=== PATIENT | female | born 2000 | race Caucasian/White ===

== ENCOUNTER 2021-08-26 18:05 | Emergency (ER) | payer SELFPAY ==
[2021-08-26 18:17] VITALS: BP 128/81; PULSE 101; RESP 16; TEMP 36.9; O2SAT 99
--- NOTE | 2021-08-26 18:30 | ED.URI ---
HPI - URI/Sore Throat General Chief Complaint: Upper Respiratory Infection Stated Complaint: Cough Time Seen by Provider: 08/26/21 18:26 Source: patient and RN notes reviewed Mode of arrival: ambulatory Limitations: no limitations History of Present Illness HPI Narrative: 20-year-old female presents with concern for 2-week history of sore throat, cough. She reports sinus congestion and pressure. Reports she is [id number] medications with no relief. She denies sore throat. Denies body aches, chills, fever, sweats. MD elicited complaint: cough and nasal congestion Related Data Allergies Allergy/AdvReac Type Severity Reaction Status Date / Time No Known Allergies Allergy Unverified 07/28/18 14:34 Review of Systems Review of Systems: CONSTITUTIONAL: Denies malaise, chills, sweats, or fever. EYES: Denies visual changes, redness, or discharge. ENT: Reports rhinorrhea, congestion, sinus pain. Otalgia and sore throat. CARDIOVASCULAR: Denies chest pain, palpitations, or edema. RESPIRATORY: Reports cough. Denies dyspnea. GASTROINTESTINAL: Denies abdominal pain, nausea, vomiting, diarrhea SKIN: Denies rash or itching. MUSCULOSKELETAL: Denies myalgia. NEUROLOGIC: Denies headache. All systems reviewed & are unremarkable except as noted in HPI and below PMFSH Comments At time of signature, agree with nursing past medical, surgical, social and family history. There is no relevant family history pertinent to the presenting complaint Exam Narrative: GENERAL: Well-appearing, well-nourished, and in no acute distress. HEAD: Normocephalic EYES: PERRLA, conjunctivae clear ENT: Nares clear, turbinates edematous and erythematous, sinus tenderness. Mucous membranes moist. TM pearly silverman with dull light reflex bilaterally; no tragal tenderness. Oropharynx not erythematous without lesions. Tonsils not enlarged and without exudate, no drooling, no hoarseness, no trismus, uvula midline. NECK: Supple. No lymphadenopathy CHEST: Clear to auscultation, breath sounds equal. No wheezing, rhonchi, rales, or stridor. No respiratory distress, speaks in full sentences. HEART: Regular rate and rhythm. No murmur heard. SKIN: Warm, dry, no rash. NEURO: Alert and oriented x3. PSYCH: Normal mood and affect Course Course Emergency Course: Patient is aware of diagnosis, understands and agrees to treatment plan. Anticipatory guidance given. Patient agrees to follow-up as directed and is aware of reasons to seek care at the emergency department. Portions of this record may have been created with voice recognition software Level of Care: Express Care Visit Vital Signs Vital signs: Vital Signs Temperature 98.5 F 08/26/21 18:17 Pulse Rate 101 H 08/26/21 18:17 Respiratory Rate 16 08/26/21 18:17 Blood Pressure 128/81 08/26/21 18:17 Pulse Oximetry 99 08/26/21 18:17 Temperature 98.5 F 08/26/21 18:17 Pulse Rate 101 H 08/26/21 18:17 Respiratory Rate 16 08/26/21 18:17 Blood Pressure 128/81 08/26/21 18:17 Pulse Oximetry 99 08/26/21 18:17 Reviewed. MDM - URI/Sore Throat MDM Narrative Medical decision making narrative: Differential diagnosis considered: Amaro virus, strep pharyngitis, allergic rhinitis, upper respiratory tract infection, sinusitis, rhinosinusitis, nasopharyngitis. viral pharyngitis, otitis media, otitis externa, pneumonia, bronchitis, viral cough syndrome, viral syndrome, and influenza. Exam findings show no acute concerns or changes; patient is non-toxic appearing and is in no distress. Patient is appropriate for outpatient treatment and follow-up. Lab Data Attestation: I reviewed the patient's lab results. Critical Care Time Critical Care Time Critical Care Time: No Discharge Plan Discharge Clinical Impression: Sinobronchitis Patient Disposition: Home, Self-Care Condition: Stable Instructions: Antibiotic Form, Sinusitis (ED) Additional Instructions: Take medications as prescribed Cough
== END 2021-08-26 18:41 | disposition home or self-care (01) ==
PROVIDERS: Emergency Provider Nurse Practitioner
DX: J32.9 Chronic sinusitis, unspecified (principal); J40 Bronchitis, not specified as acute or chronic
CPT/HCPCS: 99203; G0463

== ENCOUNTER 2022-08-11 12:41 | Emergency (ER) | payer SELFPAY ==
--- NOTE | ~2022-08-11 | XR_ITS ---
Clinical Indication: Cough PA and lateral views of the chest: Comparison: None Findings: There is minimal asymmetric haziness in the right upper lobe near the hilum. Left lung mic r. Cardiomediastinal silhouette is within normal limits. Bones and soft tissues are unremarkable. Impression: Suspected subtle right upper lobe pneumonia. Reviewed, dictated and finalized at location . E [employer]IAN Impression: Suspected subtle right upper lobe pneumonia.
[2022-08-11 12:50] VITALS: BP 103/65; PULSE 145; RESP 16; TEMP 37.9; O2SAT 97
--- NOTE | 2022-08-11 13:15 | ED.URI ---
HPI - URI/Sore Throat General Chief Complaint: Upper Respiratory Infection Stated Complaint: uri Time Seen by Provider: 08/11/22 12:55 Source: patient Mode of arrival: ambulatory Limitations: no limitations History of Present Illness HPI Narrative: Jessica is a 21-year-old female patient presenting to clinic today with complaints cough, headache, sore throat, low-grade temperature, congestion, and fatigue x5 days. She reports that her son was sick for 5 days as well but has improved. She denies any known exposure to anybody with COVID, flu, or strep. MD elicited complaint: fever, cough, sore throat and nasal congestion Related Data Allergies Allergy/AdvReac Type Severity Reaction Status Date / Time No Known Allergies Allergy Unverified 08/11/22 12:45 Review of Systems Review of Systems: Pertinent positives per HPI. Patient denies any fever, chills, rash, headache, visual changes, dizziness, cough, shortness of breath, chest pain, palpitations, nausea, vomiting, diarrhea, constipation, abdominal pain, or any urinary issues. PMFSH Comments At the time of my signature, I reviewed and agree with the nursing past medical, surgical, social, and family history. There is no relevant family history pertinent to the patient complaint. Exam Narrative: General: Well-developed, well nourished, in no apparent distress Head: Normocephalic, atraumatic Eyes: Pupils equally round and reactive to light bilaterally, EOM intact, sclera and conjunctive clear, no discharge, lids normal Ears: TMs intact and dull, ear canals clear, no drainage, grossly hearing normal. Nose: Nares patent, clear nasal discharge, no inflammation, no sinus tenderness. Mouth: Oral pharynx without lesions or masses, good dentition, MMM. oropharynx red, postnasal drip Neck: Supple, trachea midline, no enlargement of anterior or posterior cervical nodes, no thyroid masses or goiter palpable. Cardio: Regular rate and rhythm, s1 and s2 normal, no murmur appreciated. Resp: Clear to auscultation bilaterally, no rhonchi, rales, wheezing or rubs Course Course Emergency Course: Portions of this record may have been created with voice recognition software. Level of Care: Express Care Visit Vital Signs Vital signs: Vital Signs Temperature 37.9 C H 08/11/22 12:50 Pulse Rate 145 H 08/11/22 12:50 Respiratory Rate 16 08/11/22 12:50 Blood Pressure 103/65 08/11/22 12:50 Pulse Oximetry 97 08/11/22 12:50 Oxygen Delivery Room Air 08/11/22 12:50 Temperature 37.9 C H 08/11/22 12:50 Pulse Rate 145 H 08/11/22 12:50 Respiratory Rate 16 08/11/22 12:50 Blood Pressure 103/65 08/11/22 12:50 Pulse Oximetry 97 08/11/22 12:50 Oxygen Delivery Room Air 08/11/22 12:50 Vital signs reviewed MDM - URI/Sore Throat MDM Narrative Medical decision making narrative: At the time of visit patient is resting comfortably on the exam table. COVID testing was negative in the clinic today. Strep culture was sent to the lab. Chest x-ray was performed and shows that she has a section was shows that she has subtle right upper lobe pneumonia. Differential Diagnosis Differential diagnosis: Likely sinusitis, viral infection, influenza and pharyngitis Lab Data Labs: Lab Results 08/11/22 Range/Units 13:00 POC SARS CoV-2 Ag Negative (Negative) Imaging Data Radiologist's impression: [facility] [address] [place] [address] XRay Report Signed Patient: Chelsea Jeronimo : 2000 MR#: [id number] Age/Sex: 21 / F Acct:[id number] Loc: [facility]PC[facility]? ? ADM Date: 08/11/22Attending Dr: Ordering Physician: Rancho Hubbard APRN Date of Service: 08/11/22 Procedure(s): XR chest 2V Accession Number(s): [id number] cc: Rancho Hubbard APRN; UNKNOWN,DOCTOR~ Clinical Indication: Cough ?PA and lateral views of the chest: Comparison: None Fi
== END 2022-08-11 13:44 | disposition home or self-care (01) ==
PROVIDERS: Emergency Provider Nurse Practitioner Family
DX: J18.1 Lobar pneumonia, unspecified organism (principal); J02.9 Acute pharyngitis, unspecified; B34.9 Viral infection, unspecified; J06.9 Acute upper respiratory infection, unspecified; Z20.822 Contact with and (suspected) exposure to COVID-19; J45.909 Unspecified asthma, uncomplicated
CPT/HCPCS: 71046; 87081; 87426; 99213; C9803; G0463